=== PATIENT | female | born 1945 | race Caucasian/White ===

== ENCOUNTER 2023-07-23 16:51 | Emergency (ER) | payer MEDICARE, OTHER, SELFPAY ==
[2023-07-23 16:52] VITALS: BP 134/78
[2023-07-23 17:13] LABS: % Basophils 0.7 % (0-2); % Eosinophils 2.8 % (0-6); % Immature Granulocytes 0.2 % (0-0.5); % Lymphocytes 29.7 % (20.5-51.1); % Monocytes 7.8 % (1.7-9.3); % Neutrophils 58.8 % (42.2-75.2); Absolute Eosinophils 0.2 10^3/uL (0-0.7); Absolute Lymphocytes 1.8 10^3/uL (1.2-3.4); Absolute Monocytes 0.5 10^3/uL (0.1-0.6); Absolute Neutrophils 3.5 10^3/uL (1.4-6.5); Hematocrit 29.9 % (37.0-47.0); Mean Corp Hgb Conc. 33.4 g/dL (33.0-37.0); Mean Corpuscular Volume 80.6 fL (81.0-99.0); Mean Platelet Volume 9.8 fL (7.4-10.4); Nucleated Red Blood Cells % 0 %; Platelet Count 186 10^3/uL (130-400); Red Blood Cell Count 3.71 10^6/uL (4.20-5.40); Red Cell Dist. Width 14.2 % (11.5-14.5)
[2023-07-23 17:26] LABS: ALT (SGPT) 14 U/L (0-35); AST (SGOT) 25 U/L (14-36); Albumin 3.9 g/dl (3.5-5.0); Alkaline Phosphatase 105 U/L (38-126); Blood Urea Nitrogen 26 mg/dl (7-17); Calcium 9.1 mg/dl (8.4-10.2); Carbon Dioxide 26 mmol/L (22-30); Chloride 105 mmol/L (98-107); Glucose 111 mg/dl (70-99); Potassium 4.6 mmol/L (3.5-5.1); Sodium 136 mmol/L (135-145); Total Bilirubin 0.2 mg/dl (0.2-1.3); Total Protein 6.2 g/dl (6.3-8.2); eGFR 58.02
[2023-07-23 17:37] LABS: Troponin I < 0.012 ng/ml
--- NOTE | 2023-07-23 18:16 | ED.GENMED ---
History of Present Illness
<QUIANA Arriaga - Last Filed: 07/23/23 21:58>
General
Chief Complaint: Chest Pain
Source: patient and family
Exam Limitations: none
Time Seen by Provider: 07/23/23 17:54
Travel History
Have you had any contact with someone who has COVID-19?: No
Do you have any symptoms of coronavirus? Fever > 100 degrees, chills, cough, shortness of breath, sore throat, loss of taste or smell, muscle aches, or headache?: No
History of Present Illness
History of Present Illness:
This is a 78 year old female that is brought in by family with c/o chest pain. States that she couldn't take a deep breath and c/o pain under her breast. State that this was around 3:30pm today. Patient state that she still has slight discomfort.
States that she felt SOB with the pain and slightly nauseated. States that she also has a headache. Denies any fever, chills, abd pain, vomiting, diarrhea, dizziness, urinary burning.
Past History
<QUIANA Arriaga - Last Filed: 07/23/23 21:58>
Past History
ED Past Medical History: Psychiatric (Anxiety) and Other (Slight Dementia. Able to answer questions, Benign Tremors)
ED Past Surgical History: Gynecological (Hysterectomy)
Social History
Tobacco: Non-smoker
Alcohol: None
Personal:
Living: with family
Review of Systems
<QUIANA Arriaga - Last Filed: 07/23/23 21:58>
Review of Systems
Other source history: family
All Other Systems: ROS reviewed and negative except as documented in HPI and ROS
Constitutional: Reports no symptoms; Denies fever or chills
EENT: Reports no symptoms
Respiratory: Reports trouble breathing; Denies cough
Cardiac: Reports chest pain
ABD/GI: Reports nausea; Denies abdominal pain, vomiting or diarrhea
: Reports no symptoms; Denies dysuria, frequency or urgency
Musculoskeletal: Reports no symptoms
Skin: Reports no symptoms
Neurological: Reports headache; Denies dizzy
Psychiatric: Reports no symptoms
Phy Exam
<QUIANA Arriaga - Last Filed: 07/23/23 21:58>
General Physical Exam
General Presentation: well appearing and no apparent distress
General age: appears stated age
General Skin: warm and dry
General Habitus: elderly
General Mental: alert
General Hydration: appears well hydrated
ENT Exam
ENT Exam: TM's normal, pharynx normal and neck supple
Eye Exam
Eye Exam: EOMI
Cardiovascular Exam
Cardiovascular Exam: regular rate/rhythm, no murmur and normal peripheral pulses
Pulmonary Exam
Pulmonary Exam: lungs clear, no respiratory distress, no rales, chest non tender, no crackles, no rhonchi, no wheezing and no cough
Gastrointestinal Exam
Gastrointestinal Exam: normal bowel sounds, non tender, soft, no organomegaly, no pulsatile mass and non distended
Musculoskeletal Exam
Musculoskeletal Exam: full ROM and edema (Very slight ankle edema)
Skin Exam
Skin Exam: normal color, warm/dry, no rash and no petechia
Psychiatric Exam
Psychiatric Exam: normal mood/affect
Scores
<QUIANA Arriaga - Last Filed: 07/23/23 21:58>
Heart Score for Chest Pain Patients
STEMI patient?: Not applicable
Course
<QUIANA Arriaga - Last Filed: 07/23/23 21:58>
Orders/Labs/Results
Orders:
Orders
07/23/23 16:52
ECG [Electrocardiogram (*1)] Urgent
Reason for Study: Chest Pain
EKG- Treatment ONCE
07/23/23 17:02
Complete Blood Count/With Diff Urgent
Comprehensive Metabolic Panel Urgent
Troponin I Urgent
07/23/23 18:16
Acetaminophen [Tylenol] 1,000 mg PO NOW STA
07/23/23 18:18
Pantoprazole [Protonix IV] 40 mg IV NOW STA
07/23/23 18:31
D-Dimer Urgent
NT-proBNP Urgent
Troponin I Urgent
Comment: ADD ON
07/23/23 18:50
Add On- LAB Urgent
Tests Added?: TROPONIN
07/23/23 18:53
Urinalysis Urgent
Date Specimen was Collected: 07/23/23
Time Specimen was Collected: 18:52
07/23/23 20:05
CT Chest Pe Study Urgent
Comment:
Reason For Exam: Left sided chest pain, Elevated D-dimer
Abnormal Lab Results
07/23/23 07/23/23
17:02 18:31
RBC 3.71 L 10^6/uL
(4.20-5.40)
Hgb 10.0 L g/dL
(12.0-16.0)
Hct 29.9 L %
(37.0-47.0)
MCV 80.6 L fL
(81.0-99.0)
D-Dimer 0.76 H ug/mlFEU
(0.00-0.50)
BUN 26 H mg/dl
(7-17)
Glucose 111 H mg/dl
(70-99)
Total Protein 6.2 L g/dl
(6.3-8.2)
07/23/23 17:02
07/23/23 17:02
H/H slightly low. Dehydration. Glucose nonfasting. Troponin <0.012
Second troponin <0.012, D-dimer elevated at 0.76, Urine negative for infection.
Vital Signs
Initial and Last Documented VS:
Initial Vital Signs
Pulse Resp BP Pulse Ox
70 20 134/78 99
07/23/23 16:52 07/23/23 16:52 07/23/23 16:52 07/23/23 16:52
Last Documented Vital Signs
Pulse Resp BP Pulse Ox
63 19 160/69 97
07/23/23 20:10 07/23/23 20:10 07/23/23 20:10 07/23/23 20:10
<Bella Duran MD - Last Filed: 07/23/23 19:36>
Orders/Labs/Results
Orders:
Orders
07/23/23 16:52
ECG [Electrocardiogram (*1)] Urgent
Reason for Study: Chest Pain
EKG- Treatment ONCE
07/23/23 17:02
Complete Blood Count/With Diff Urgent
Comprehensive Metabolic Panel Urgent
Troponin I Urgent
07/23/23 18:16
Acetaminophen [Tylenol] 1,000 mg PO NOW STA
07/23/23 18:18
Pantoprazole [Protonix IV] 40 mg IV NOW STA
07/23/23 18:31
D-Dimer Urgent
NT-proBNP Urgent
Troponin I Urgent
Comment: ADD ON
07/23/23 18:50
Add On- LAB Urgent
Tests Added?: TROPONIN
07/23/23 18:53
Urinalysis Urgent
Date Specimen was Collected: 07/23/23
Time Specimen was Collected: 18:52
07/23/23 20:05
CT Chest Pe Study Urgent
Comment:
Reason For Exam: Left sided chest pain, Elevated D-dimer
Abnormal Lab Results
07/23/23 07/23/23
17:02 18:31
RBC 3.71 L 10^6/uL
(4.20-5.40)
Hgb 10.0 L g/dL
(12.0-16.0)
Hct 29.9 L %
(37.0-47.0)
MCV 80.6 L fL
(81.0-99.0)
D-Dimer 0.76 H ug/mlFEU
(0.00-0.50)
BUN 26 H mg/dl
(7-17)
Glucose 111 H mg/dl
(70-99)
Total Protein 6.2 L g/dl
(6.3-8.2)
07/23/23 17:02
07/23/23 17:02
Vital Signs
Initial and Last Documented VS:
Initial Vital Signs
Pulse Resp BP Pulse Ox
70 20 134/78 99
07/23/23 16:52 07/23/23 16:52 07/23/23 16:52 07/23/23 16:52
Last Documented Vital Signs
Pulse Resp BP Pulse Ox
63 19 160/69 97
07/23/23 20:10 07/23/23 20:10 07/23/23 20:10 07/23/23 20:10
<QUIANA Arriaga - Last Filed: 07/23/23 21:58>
MDM/Problems Addressed
Differential Diagnosis Includes:
PE, Cornary syndrome. Musculoskeletal pain
MDM/Problems Addressed:
This is a 78 year old female that comes in with c/o pain under the left breast. Daughter states that this started about 3:30pm.
Will check labs. chest x-ray and medicate for pain.
Patient was seen by Dr. Duran and had a conversation with patients family. Explained that her D-dimer came back positive. Explained that when a patient comes in with c/o chest pain they normally would get a chest x-ray. Patient was totally dressed.
Explained that they can refuse the CT scan but have agreed to stay for the CT.
Back into see patient and family. Reviewed CT scan. Explained that this may be the cause of her discomfort as the nerves wrap around from the spine. Will discharge patient home. Patient to follow up with the family doctor. Return with any concerns.
Chronic conditions affecting care:
NA
Acute Exacerbation and/or Progression of Chronic Illness:
NA
<QUIANA Arriaga - Last Filed: 07/23/23 21:58>
*Radiology
Radiology exam reviewed: radiology read reviewed (CT chest-NO CTA evidence for acute central pulmonary arterial embolus. Mild cardiomegaly. MIld mosaic attenuation throughout the lower lobes suggesting obstructive small airways disease. Mild
subpleural subsegmental atelectasis and scarring in the basilar segments of the lower lobes and in the) and all reviewed NAD by ED Provider (CT cont- posterior segment of the right upper lobe. Moderate-sized calcified disc herniation at T7/T8
causing moderate spinal cord compression and central canal stenosis. Small hiatal hernia)
*Pulse Oximetry
Patient hypoxic: no
*EKG
Interpreted by ED Provider?: Yes
Heart Rate: 69
Rate: normal
Rhythm: sinus
Reva: normal axis
Interval: normal interval
QRS Pattern: normal QRS
Ischemia: no ischemia
*Critical Care Note
Total Time (30-74mins, 75-104mins- exclusive of procedures): Not Applicable
ED Attending Note
<QUIANA Arriaga - Last Filed: 07/23/23 21:58>
-
Portions of this chart may have been created with voice recognition software.� Occasional wrong word or��sound alike� substitutions may have occurred due to the inherent limitations of voice recognition software.
<Bella Duran MD - Last Filed: 07/23/23 19:36>
ED Attending Note
Patient seen and examined by attending physician: Yes
I performed the substantive portion of visit, reviewed & personally made and approve the management plan that is documented in note by myself or RUCHI.: Yes
ED Attending Note:
78-year-old female with mild to moderate dementia who reported left anterior chest discomfort, just under her breast, earlier today around 3:30 PM. History limited given patient's dementia. Is unclear if this was radiating although she did not
specifically say it was. No associated dyspnea, does not reportedly sound pleuritic in nature, no recent fever, chills, cough, sore throat, rhinorrhea, hemoptysis, abdominal pain. Patient has a known history of anemia baseline hemoglobin is
approximately 11. Has seen fagoter but not had a recent colonoscopy or further workup. Here on exam patient is comfortable without symptoms. Heart regular rate and rhythm, lungs CTA, no tenderness to palpation of abdomen or chest wall. Low
clinical suspicion for PE, ACS, pneumonia, PTX, abdominal process, etc. Discussed with patient and family follow-up and reasons return to the emergency department. Attention brought to patient's mildly elevated blood pressures while
Discharge Plan
Departure
Patient Disposition: Home (Routine Discharge)
Date of Disposition: 07/23/23
Time of Disposition: 21:53
Patient with high blood pressure during this ER visit?: Yes
Condition: Good
Covid-19: Not Applicable
Discharge Problem:
Thoracic disc herniation, Chest pain
Instructions: Herniated Disc (DC), Chest Pain PCP Follow Up, BLOOD PRESSURE
Prescriptions:
No Action
escitalopram oxalate [Lexapro] 10 mg Tablet
10 mg PO DAILY
memantine [Namenda] 5 mg Tablet
5 mg PO BID
rivastigmine [Exelon Patch] 9.5 mg/24 hour Patch 24 Hour
9.5 mg TRANSDERMAL DAILY
propranolol 10 mg Tablet
10 mg PO HS
propranolol 20 mg Tablet
20 mg PO DAILY
Referrals:
Wilfred Larson DO [Family Provider] - Follow up in 2-3 days
Activity Restrictions/Additional Instructions:
As discussed, your blood work shows that your Hgb is slightly low and your are dehydrated. Please increase your water intake to 8-8oz glasses daily. Your CT shows that there is T7/T8 disc herniation. This may be the cause of the pain under the
breast as the nerves wrap around to the front. Your ECG and both Troponin are normal. Please follow up with the family doctor for recheck. IF YOU HAVE ANY OTHER CONCERNS PLEASE RETURN TO THE EMERGENCY ROOM.
Interventions
Interventions:
*Risk Screen - Suicide Last Done: 07/23/23 18:25
*General Assessment Last Done: 07/23/23 18:24
*Neglect/Abuse Screening Last Done: 07/23/23 18:13
ED- Fall Risk Assessment Last Done: 07/23/23 18:25
*ED COVID-19 Vaccine History Last Done: 07/23/23 16:54
ED- Cardiac Assessment Last Done: 07/23/23 20:18
Discharge Date and Time
Print Language: TELUGU
[2023-07-23 18:24] VITALS: BP 149/73; BMI 30.1
[2023-07-23] MEDS: PROTONIX IV 40 MG IV (18:46)
[2023-07-23] MEDS: TYLENOL 1000 MG PO (18:46)
[2023-07-23 19:00] VITALS: BP 156/72
[2023-07-23 19:00] LABS: NT-proBNP 717 pg/ml
[2023-07-23 19:06] LABS: Urine Albumin Negative (Neg - Trace); Urine Bilirubin Negative (Negative); Urine Character Clear (Clear); Urine Color Straw; Urine Glucose Negative (Negative); Urine Ketone Negative (Negative); Urine Leukocyte Negative (Negative); Urine Nitrite Negative (Negative); Urine Occult Blood Negative (Negative); Urine Specific Gravity 1.005 (<1.030); Urine Urobilinogen Negative (Neg - 1+)
[2023-07-23 19:23] LABS: D-Dimer 0.76 ug/mlFEU (0.00-0.50)
[2023-07-23 19:25] LABS: Troponin I < 0.012 ng/ml
[2023-07-23 19:44] VITALS: BP 146/77
--- NOTE | 2023-07-23 19:58 | EDRN ---
EDT went in to take pt to [facility]. This RN noted d-dimer elevated, spoke with Margot Machado [employer] via phone and vo to cancel cxr, pt will get a CT of chest. Went to inform EDT however she came out of the pt room and said pt is dressed, ready to go home and
family questioning why pt needs cxr, that they were being discharged. Family member came out and asked about reasoning for cxr - informed will have Margot Machado [employer] come speak with them.
[2023-07-23 20:10] VITALS: BP 160/69
[2023-07-23 21:30] VITALS: BP 146/70
== END 2023-07-23 22:15 | disposition home or self-care (01) ==
LOC: EMR 16:51
PROVIDERS: Clinical Nurse Specialist Family Health; Student in an Organized Health Care Education/Training Program; EMERGENCY PHYSICIAN Emergency Medicine; FAMILY PHYSICIAN Family Medicine
DX: M51.24 Other intervertebral disc displacement, thoracic region (principal); R07.89 Other chest pain; F03.94 Unspecified dementia, unspecified severity, with anxiety
CPT/HCPCS: 99284; 96374; 71275; 80053; 81003; 83880; 84484; 85025; 85379; 93005; Q9967